=== PATIENT | female | born 1940 | race African-American/Black ===

== ENCOUNTER 2018-10-16 11:47 | Inpatient (IN) | payer MEDICARE, MEDICAID ==
[~2018-10-16] VITALS: Ht 162.6 cm; Wt 73.0 kg
[~2018-10-16 11:47] MED LIST: AMLODIPINE BESY10 MG ORAL; CO-GESIC 5-5001 EACH PO; DIOVAN80 MG ORAL; DOCUSATE SODIU100 M2 PO; GABAPENTIN600 MG PO; VENTOLIN HFA18 GM INH
[2018-10-16] MEDS ORDERED: AMIODARONE HCL200 MG ORAL (12:04)
[2018-10-16] MEDS ORDERED: DALIRESP500 MCG PO (12:04)
[2018-10-16] MEDS ORDERED: FUROSEMIDE40 MG ORAL (12:04)
[2018-10-16] MEDS ORDERED: XARELTO15 MG ORAL (12:04)
[2018-10-16] MEDS ORDERED: IPRATROPIU0.2 MG/1 M HHN (12:04)
[2018-10-16] MEDS ORDERED: CARTIA XT180 MG ORAL (12:04)
[2018-10-16] MEDS ORDERED: DIGOXIN125 MCG ORAL (12:04)
[2018-10-16 12:07] VITALS: BP 115/68
[2018-10-16] MEDS ORDERED: Metoclopramide 10mg/2ml Inj IVP ONE (12:30)
[2018-10-16] MEDS ORDERED: DiphenhydrAMINE 50mg/ml Inj IVP ONE (12:30)
[2018-10-16 12:38] LABS: BASOPHILS % (AUTO) 0.7 % (0.0-2.0); EOSINOPHILS % (AUTO) 1.3 % (0.0-3.0); HEMATOCRIT 40.4 % (37.0-47.0); HEMOGLOBIN 12.4 G/DL (12.0-16.0); LYMPHOCYTES % (AUTO) 16.5 % (20.0-45.0); MEAN CORPUSCULAR VOLUME 75 FL (80-99); MONOCYTES % (AUTO) 6.3 % (1.0-10.0); NEUTROPHILS % (AUTO) 75.3 % (45.0-75.0); PLATELET COUNT 312 K/UL (150-450); RED CELL DISTRIBUTION WIDTH 17.3 % (11.6-14.8); WHITE BLOOD COUNT 7.3 K/UL (4.8-10.8)
[2018-10-16 12:45] LABS: INR 1.6 (0.9-1.1)
[2018-10-16 12:52] LABS: ANION GAP 10 mmol/L (5-15); BLOOD UREA NITROGEN 12 mg/dL (7-18); CALCIUM 9.8 MG/DL (8.5-10.1); CARBON DIOXIDE 29 MMOL/L (21-32); CHLORIDE 100 MMOL/L (98-107); CREATININE 1.1 MG/DL (0.55-1.30); POTASSIUM 3.2 MMOL/L (3.5-5.1); SODIUM 139 MMOL/L (136-145)
[2018-10-16 13:03] LABS: ALBUMIN 3.6 G/DL (3.4-5.0); ALBUMIN/GLOBULIN RATIO 0.8 (1.0-2.7); ALKALINE PHOSPHATASE 124 U/L (46-116); BILIRUBIN,TOTAL 0.8 MG/DL (0.2-1.0)
[2018-10-16 13:16] LABS: ALANINE AMINOTRANSFERASE 24 U/L (12-78); ASPARTATE AMINO TRANSFERASE 30 U/L (15-37)
--- NOTE | 2018-10-16 13:48 | Emergency Room Report ---
History of Present Illness General Chief Complaint: Nausea, Vomiting, and Diarrhea Source: Patient Present Illness HPI The patient fell last week. She was evaluated at [facility] at [place]. She injured her back. She and her family member state that x- rays were taken and that no fractures were identified. She says the back is improved. However over the last several days she has not eaten well. She also feels nauseated and vomited once yesterday. She denies any diarrhea at this time. She is only been taking Tylenol because she is on Xarelto. She denies any lower extremity numbness, increasing pain, fevers, weakness in her legs, incontinence or oncologic problems. The pain is rated 7/10 in her back and she denies any pain in her abdomen. She denies any sore throat or cough. There are no rashes. She denies dysuria. She feels generalized weakness and also feels dehydrated. She ambulates with a walker. The patient has an history of atrial fibrillation and is taking digoxin. She denies depression. Her appetite is poor and she also feels nauseated. She was admitted 2012 with these dx: 1. Cellulitis of abdomen and upper thigh that is superficial. More likely fungal than bacterial. 2. History of recent upper viral infection and chronic obstructive pulmonary disease exacerbation. 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 3. Obesity. 4. Hypertension. 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 Hx Hypertension: Yes Hx Asthma: Yes Hx COPD: Yes Hx Cancer: No Hx Gastrointestinal Problems: No Hx Neurological Problems: No Hx Headaches: Yes - occationally Review of Systems All Other Systems: negative except mentioned in HPI Physical Exam Vital Signs Date Time Temp Pulse Resp B/P (MAP) Pulse Ox O2 Delivery O2 Flow Rate FiO2 10/16/18 11:54 97.5 65 20 118/75 94 Room Air Sp02 EP Interpretation: reviewed, normal General Appearance: no apparent distress, non-toxic, Chronically Ill Head: normocephalic Eyes: bilateral eye EOMI - Silastic lenses, bilateral eye other ENT: dry mucus membranes Neck: supple Respiratory: lungs clear, normal breath sounds Cardiovascular #1: irregularly irregular Cardiovascular #2: 2+ radial (R) Gastrointestinal: normal inspection, non tender, no mass, non-distended, decreased bowel sounds Genitourinary: no CVA tenderness Musculoskeletal: gait/station normal, normal range of motion, tender Neurologic: alert, DTRs symmetric, sensory intact, no Babinski, motor weakness - Minimal bilaterally, oriented - X2 Psychiatric: depressed affect Skin: normal inspection, warm/dry Medical Decision Making Diagnostic Impression: Primary Impression: Nausea, vomiting, and diarrhea Additional Impressions: Elevated lactic acid level Atrial fibrillation Qualified Codes: I48.2 - Chronic atrial fibrillation Chronic anticoagulation Dehydration ER Course Patient presents for week post fall. Allegedly she's had x-rays done that allegedly excluded fracture. She is on anticoagulation however. She presents with nausea vomiting and poor appetite. Differential includes gastroenteritis, Mayfield syndrome, diverticulitis, urinary tract infection, other occult infection, digoxin toxicity, ileus amongst others. Patient appears dehydrated. She'll be evaluated with EKG chest x-ray abdominal film and labs. She will receive IV hydration. The patient will be treated with Reglan and Benadryl and Pepcid. The abdomen is soft and nonsurgical. EKG with atrial fibrillation rate of [address]-T wave changes most likely digoxin effect. Chest x-ray cardiomegaly. Abdominal film nonspecific bowel pattern with gas in the rectum and some pelvic calcifications. Called with elevated lactic acid. Patient is afebrile, white count is normal. Urinalysis pending but looks clear. There is no evidence of infection at this time and this may be related to chronic dehydration. Improved with treatment. Needs observation and evaluation. Consider repeat studies of back as needed. Admit med Dr. العلي. Laboratory Tests Test 10/16/18 11:23 10/16/18 13:30 10/16/18 13:45 White Blood Count 7.3 K/UL (4.8-10.8) Red Blood Count 5.40 M/UL (4.20-5.40) Hemoglobin 12.4 G/DL (12.0-16.0) Hematocrit 40.4 % (37.0-47.0) Mean Corpuscular Volume 75 FL (80-99) L Mean Corpuscular Hemoglobin 22.9 PG (27.0-31.0) L Mean Corpuscular Hemoglobin Concent 30.6 G/DL (32.0-36.0) L Red Cell Distribution Width 17.3 % (11.6-14.8) H Platelet Count 312 K/UL (150-450) Mean Platelet Volume 8.7 FL (6.5-10.1) Neutrophils (%) (Auto) 75.3 % (45.0-75.0) H Lymphocytes (%) (Auto) 16.5 % (20.0-45.0) L Monocytes (%) (Auto) 6.3 % (1.0-10.0) Eosinophils (%) (Auto) 1.3 % (0.0-3.0) Basophils (%) (Auto) 0.7 % (0.0-2.0) Prothrombin Time 16.0 SEC (9.30-11.50) H Prothrombin Time INR 1.6 (0.9-1.1) H PTT 38 SEC (23-33) H Sodium Level 139 MMOL/L (136-145) Potassium Level 3.2 MMOL/L (3.5-5.1) L Chloride Level 100 MMOL/L (98-107) Carbon Dioxide Level 29 MMOL/L (21-32) Anion Gap 10 mmol/L (5-15) Blood Urea Nitrogen 12 mg/dL (7-18) Creatinine 1.1 MG/DL (0.55-1.30) Estimate Glomerular Filtration Rate mL/min (>60) Glucose Level 107 MG/DL (74-106) H Lactic Acid Level 3.10 mmol/L (0.4-2.0) H 1.60 mmol/L (0.66-2.22) Calcium Level 9.8 MG/DL (8.5-10.1) Total Bilirubin 0.8 MG/DL (0.2-1.0) Aspartate Amino Transferase (AST) 30 U/L (15-37) Alanine Aminotransferase (ALT) 24 U/L (12-78) Alkaline Phosphatase 124 U/L (46-116) H Troponin I 0.009 ng/mL (0.000-0.056) Pro-B-Type Natriuretic Peptide 1127 pg/mL (0-125) H Total Protein 8.1 G/DL (6.4-8.2) Albumin 3.6 G/DL (3.4-5.0) Globulin 4.5 g/dL Albumin/Globulin Ratio 0.8 (1.0-2.7) L Lipase 83 U/L (73-393) Digoxin Level 1.5 NG/ML (0.9-2.0) Urine Color Pale yellow Urine Appearance Clear Urine pH 7 (4.5-8.0) Urine Specific [place] 1.005 (1.005-1.035) Urine Protein Negative (NEGATIVE) Urine Glucose (UA) Negative (NEGATIVE) Urine Ketones Negative (NEGATIVE) Urine Blood 5+ (NEGATIVE) H Urine Nitrite Negative (NEGATIVE) Urine Bilirubin Negative (NEGATIVE) Urine Urobilinogen Normal MG/DL (0.0-1.0) Urine Leukocyte Esterase 1+ (NEGATIVE) H Urine RBC 15-20 /HPF (0 - 2) H Urine WBC 0-2 /HPF (0 - 2) Urine Squamous Epithelial Cells Few /LPF (NONE/OCC) Urine Bacteria Occasional /HPF (NONE) EKG Diagnostic Results Rate: normal Rhythm: other - a fib ST Segments: other - ST depression inferiorly, not STEMI Rhythm Strip Diag. Results EP Interpretation: yes Rhythm: NSR, no PVC's, no ectopy Chest X-Ray Diagnostic Results Chest X-Ray Diagnostic Results : Chest X-Ray Ordered: Yes Indication: Other EP Interpretation: Yes Interpretation: no consolidation, no effusion, no pneumothorax, other - inc cor Impression: Other Electronically Signed by: Electronically signed by Arden Gomez MD Other X-Ray Diagnostic Results Other X-Ray Diagnostic Results : X-Ray ordered: abdomen # of Views/Limited Vs Complete: 1 View Indication: Pain EP Interpretation: Yes Interpretation: nonspecific bowel gas, no sbo, other - pelvic calcifications Impression: Other Electronically Signed by: Electronically signed by Arden Gomez MD Last Vital Signs Date Time Temp Pulse Resp B/P (MAP) Pulse Ox O2 Delivery O2 Flow Rate FiO2 10/16/18 17:11 97.7 58 18 117/69 (85) 99 10/16/18 16:56 Room Air Status: improved Disposition: ADMITTED INPATIENT Condition: Serious Referrals: Robert العلي MD (PCP) Arden Gomez MD Oct 16, 2018 13:48
[2018-10-16 14:05] LABS: APPEARANCE,URINE CLEAR; BILIRUBIN, URINE NEGATIVE (NEGATIVE); COLOR,URINE PALE YELLOW; GLUCOSE, URINE (UA) NEGATIVE (NEGATIVE); KETONES,URINE NEGATIVE (NEGATIVE); LEUKOCYTE ESTERASE ,URINE 1+ (NEGATIVE); NITRITE,URINE NEGATIVE (NEGATIVE); PH,URINE 7 (4.5-8.0); PROTEIN,URINE NEGATIVE (NEGATIVE); UROBILINOGEN,URINE NORMAL MG/DL (0.0-1.0)
--- NOTE | 2018-10-16 14:59 | Diagnostic Imaging Report ---
Indication: Cough Technique: One view of the chest Comparison: 07/06/2012 Findings: The heart is borderline enlarged. This is a new finding since prior study. The lungs and pleural spaces are clear. There is some atelectasis in the left perihilar region. Impression: Cardiomegaly Left perihilar atelectasis. No acute process otherwise
--- NOTE | 2018-10-16 15:25 | Diagnostic Imaging Report ---
Indication: Abdominal pain and back pain Technique: Supine view of the abdomen Comparison: none Findings: Bowel gas pattern is unremarkable. Calcifications of uncertain origin are seen in the pelvis. There are degenerative changes of the lumbar spine Impression: No acute process
[2018-10-16] MEDS ORDERED: OMEPRAZOLE20 M3 ORAL (16:41)
[2018-10-16] MEDS ORDERED: METOPROLOL TART50 M1 ORAL (16:41)
[2018-10-16] MEDS ORDERED: TYLENOL EXTRA500 MG ORAL (16:41)
[2018-10-16] MEDS ORDERED: ANORO ELLIPTA1 EACH (16:41)
[2018-10-16] MEDS ORDERED: COSOPT1 DRO2 BOTH EYES (16:41)
[2018-10-16 17:11] VITALS: BP 117/69
[2018-10-16] MEDS ORDERED: Albuterol/Ipratropium 3ml neb HHN PRN (19:00)
[2018-10-16] MEDS ORDERED: Acetaminophen 500mg (ES) tab ORAL PRN (19:00)
[2018-10-16 20:00] VITALS: BP 98/61
[2018-10-16] MEDS ORDERED: Sodium Chloride for KCL Premix X 4hrs IV SCH (20:00)
[2018-10-16] MEDS: Cosopt Opth Soln 10 mL Btl BOTH EYES SCH (21:00)
[2018-10-16] MEDS: Xarelto 15mg tab ORAL SCH (21:00)
[2018-10-17] VITALS: BP 112/51
--- NOTE | 2018-10-17 01:45 | History and Physical Report ---
DATE OF ADMISSION: 10/16/2018 HISTORY OF PRESENT ILLNESS: This is a 78-year-old female, who came to the office of the recurrent nausea, vomiting, and abdominal pain. The patient has past medical history significant for atrial fibrillation, chronic anticoagulation, nausea, vomiting, diarrhea, elevated lactic acid level, and dehydration. PAST MEDICAL HISTORY: Significant for AFib, congestive heart failure, cardiac arrhythmia, chronic back pain, and acute on chronic bronchitis. ALLERGIES: NKA. FAMILY HISTORY: Noncontributory. SOCIAL HISTORY: The patient lives with the daughter. Denies any smoking and drinking. Denies any illicit drugs. REVIEW OF SYSTEMS: Generalized weakness, tired, fatigue, recurrent nausea and vomiting. The patient was also found to have hypokalemia. Potassium was 3.0. PHYSICAL EXAMINATION: VITAL SIGNS: Current blood pressure 117/69, pulse 58, and temperature 97.7. HEENT: NAD. CHEST: Bilaterally clear. CARDIOVASCULAR: Regular rhythm. No gallop. No murmur. ABDOMEN: Soft. Positive bowel sounds. No tenderness. EXTREMITIES: CCE. NEUROLOGICAL: Generalized weakness. LABORATORY AND DIAGNOSTIC DATA: White count 7.3 and hemoglobin 12. Chemistry panel, potassium was 3.2, BUN 12, creatinine 1.1, and glucose 107. Lactic acid 3.10. Her alkaline phosphate 127. BNP was 1127. Troponin 0.009. Lipase is 83. The patient also had an ultrasound of abdomen showing no acute process. Chest x-ray, left perihilar atelectasis and cardiomegaly. ASSESSMENT: 1. CHF. 2. Urinary tract infection. 3. Recurrent nausea and vomiting. 4. Hypokalemia. 5. Cardiac arrhythmia. 6. Chronic bronchitis and chronic obstructive pulmonary disease. PLAN: 1. We will admit on medical floor. 2. Start intravenous Lasix. 3. Bronchodilator treatments. 4. Antibiotics. 5. Continue Zofran. 6. Consider Cardiology and GI consult. Jeffrey العلي M.D. DR: CHARO JOB#: [id number] CC:
[2018-10-17 04:00] VITALS: BP 117/48
[2018-10-17 08:00] VITALS: BP 136/67
[2018-10-17] MEDS ORDERED: Digoxin 0.125mg tab ORAL SCH (09:00)
[2018-10-17] MEDS ORDERED: dilTIAZem HCl CD 180mg cap ORAL SCH (09:00)
[2018-10-17] MEDS ORDERED: Metoprolol Tartrate 50mg tab ORAL SCH (09:00)
[2018-10-17] MEDS: Cosopt Opth Soln 10 mL Btl BOTH EYES SCH ×2 (10:06→21:02)
--- NOTE | 2018-10-17 10:53 | GI Initial Consult Note ---
History of Present Illness General Date patient seen: Oct 17, 2018 Time patient seen: 10:50 Reason for Hospitalization: Nausea, Vomiting, and Diarrhea Referring physician: SINAN BARRERA Reason for Consultation: Abdominal pain Present Illness HPI The patient fell last week. She was evaluated at [facility] at [place]. She injured her back. She and her family member state that x- rays were taken and that no fractures were identified. She says the back is improved. However over the last several days she has not eaten well. She also feels nauseated and vomited once yesterday. She denies any diarrhea at this time. She is only been taking Tylenol because she is on Xarelto. She denies any lower extremity numbness, increasing pain, fevers, weakness in her legs, incontinence or oncologic problems. The pain is rated 7/10 in her back and she denies any pain in her abdomen. She denies any sore throat or cough. There are no rashes. She denies dysuria. She feels generalized weakness and also feels dehydrated. She ambulates with a walker. The patient has an history of atrial fibrillation and is taking digoxin. She denies depression. Her appetite is poor and she also feels nauseated. GI consulted for reported abdominal pain. Patient was seen, awake alert oriented x4 no apparent distress with no active signs or symptoms of nausea or vomiting. The patient denied any abdominal pain at this time. Denied any constipation or diarrhea. Denied any nausea or vomiting. Abdominal x-ray was performed in the emergency room, negative. Labs reviewed; no leukocytosis, no anemia, no transaminitis. Patient has no history of endoscopic or colonoscopy, and refused to have any GI procedures done at this time. Home Meds Reported Medications Acetaminophen* (TYLENOL EXTRA STRENGTH*) 500 Mg Tablet, 500 MG ORAL Q6H PRN for Mild Pain/Temp > 100.5, TAB 0 Refills 10/16/18 Metoprolol Tartrate* (METOPROLOL TARTRATE*) 50 Mg Tablet, 50 MG ORAL DAILY, TAB 10/16/18 Dorzolamide HCl/Timolol Maleat (Dorzolamide-Timolol Eye Drops) 10 Ml Drops, 1 DROP BOTH EYES EVERY 12 HOURS, ML 10/16/18 Umeclidinium Brm/Vilanterol Tr (Anoro Ellipta 62.5-25 Mcg INH) 1 Each Blst.w.dev , DAILY 10/16/18 Omeprazole (OMEPRAZOLE) 20 Mg Tablet.dr, 20 MG ORAL DAILY, TAB 10/16/18 Ipratropium [place] 0.5MG/2.5ML (IPRATROPIUM BROMIDE 0.5MG/2.5ML) 0.2 Mg/1 Ml Solution, 0.5 MG HHN Q6H PRN for Shortness of Breath, #28 EA 10/16/18 Roflumilast (DALIRESP) 500 Mcg Tablet, 250 MCG PO DAILY, TAB 10/16/18 Rivaroxaban (XARELTO) 15 Mg Tablet, 15 MG ORAL BEDTIME for 30 Days, MG 0 Refills 10/16/18 Diltiazem Hcl* (CARTIA XT*) 180 Mg Cap.er.24h, 180 MG ORAL DAILY, CAP Swallow capsule whole. Do not open, chew, or crush 10/16/18 Digoxin* (DIGOXIN*) 125 Mcg Tablet, 125 MCG ORAL DAILY, TAB 10/16/18 Amiodarone Hcl* (CORDARONE*) 200 Mg Tablet, 200 MG ORAL EVERY 12 HOURS, TAB 10/16/18 Furosemide* (LASIX*) 40 Mg Tablet, 40 MG ORAL DAILY, TAB 10/16/18 Albuterol Sulfate (VENTOLIN HFA) 18 Gm Hfa.aer.ad, 2 PUFFS INH TID, #2 INH 0 Refills 05/04/13 Amlodipine Besylate* (AMLODIPINE BESYLATE*) 10 Mg Tablet, 10 MG ORAL DAILY 09/25/12 Valsartan (DIOVAN) 80 Mg Tab, 80 MG ORAL DAILY, TAB 09/25/12 Docusate Sodium (DOCUSATE SODIUM) 100 Mg Tablet, 100 MG PO BID 09/25/12 Hydrocodone Bit/Acetaminophen (CO-GESIC 5-500 TABLET) 1 Each Tablet, 1 EACH PO NEEDED 09/25/12 Med list reviewed/reconciled: Yes Allergies: Coded Allergies: PENICILLINS (Verified Allergy, Unknown, 10/02/10) Patient History PMH Narrative She was admitted 2012 with these dx: 1. Cellulitis of abdomen and upper thigh that is superficial. More likely fungal than bacterial. 2. History of recent upper viral infection and chronic obstructive pulmonary disease exacerbation. 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 3. Obesity. 4. Hypertension. 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 Hx Hypertension: Yes Hx Asthma: Yes Hx COPD: Yes Hx Cancer: No Hx Gastrointestinal Problems: No Hx Neurological Problems: No Hx Headaches: Yes - occasionally Social History: Denies: smoking, alcohol use, drug use, other Review of Systems All Other Systems: negative except mentioned in HPI Physical Exam Vital Signs Date Time Temp Pulse Resp B/P (MAP) Pulse Ox O2 Delivery O2 Flow Rate FiO2 10/16/18 11:54 97.5 65 20 118/75 94 Room Air Sp02 EP Interpretation: reviewed, normal Labs Laboratory Tests Test 10/16/18 11:23 10/16/18 13:30 10/16/18 13:45 White Blood Count 7.3 K/UL (4.8-10.8) Red Blood Count 5.40 M/UL (4.20-5.40) Hemoglobin 12.4 G/DL (12.0-16.0) Hematocrit 40.4 % (37.0-47.0) Mean Corpuscular Volume 75 FL (80-99) L Mean Corpuscular Hemoglobin 22.9 PG (27.0-31.0) L Mean Corpuscular Hemoglobin Concent 30.6 G/DL (32.0-36.0) L Red Cell Distribution Width 17.3 % (11.6-14.8) H Platelet Count 312 K/UL (150-450) Mean Platelet Volume 8.7 FL (6.5-10.1) Neutrophils (%) (Auto) 75.3 % (45.0-75.0) H Lymphocytes (%) (Auto) 16.5 % (20.0-45.0) L Monocytes (%) (Auto) 6.3 % (1.0-10.0) Eosinophils (%) (Auto) 1.3 % (0.0-3.0) Basophils (%) (Auto) 0.7 % (0.0-2.0) Prothrombin Time 16.0 SEC (9.30-11.50) H Prothromb Time International Ratio 1.6 (0.9-1.1) H Activated Partial Thromboplast Time 38 SEC (23-33) H Sodium Level 139 MMOL/L (136-145) Potassium Level 3.2 MMOL/L (3.5-5.1) L Chloride Level 100 MMOL/L (98-107) Carbon Dioxide Level 29 MMOL/L (21-32) Anion Gap 10 mmol/L (5-15) Blood Urea Nitrogen 12 mg/dL (7-18) Creatinine 1.1 MG/DL (0.55-1.30) Estimat Glomerular Filtration Rate mL/min (>60) Glucose Level 107 MG/DL (74-106) H Lactic Acid Level 3.10 mmol/L (0.4-2.0) H 1.60 mmol/L (0.66-2.22) Calcium Level 9.8 MG/DL (8.5-10.1) Total Bilirubin 0.8 MG/DL (0.2-1.0) Aspartate Amino Transf (AST/SGOT) 30 U/L (15-37) Alanine Aminotransferase (ALT/SGPT) 24 U/L (12-78) Alkaline Phosphatase 124 U/L (46-116) H Troponin I 0.009 ng/mL (0.000-0.056) Pro-B-Type Natriuretic Peptide 1127 pg/mL (0-125) H Total Protein 8.1 G/DL (6.4-8.2) Albumin 3.6 G/DL (3.4-5.0) Globulin 4.5 g/dL Albumin/Globulin Ratio 0.8 (1.0-2.7) L Lipase 83 U/L (73-393) Digoxin Level 1.5 NG/ML (0.9-2.0) Urine Color Pale yellow Urine Appearance Clear Urine pH 7 (4.5-8.0) Urine Specific [place] 1.005 (1.005-1.035) Urine Protein Negative (NEGATIVE) Urine Glucose (UA) Negative (NEGATIVE) Urine Ketones Negative (NEGATIVE) Urine Blood 5+ (NEGATIVE) H Urine Nitrite Negative (NEGATIVE) Urine Bilirubin Negative (NEGATIVE) Urine Urobilinogen Normal MG/DL (0.0-1.0) Urine Leukocyte Esterase 1+ (NEGATIVE) H Urine RBC 15-20 /HPF (0 - 2) H Urine WBC 0-2 /HPF (0 - 2) Urine Squamous Epithelial Cells Few /LPF (NONE/OCC) Urine Bacteria Occasional /HPF (NONE) General Appearance: well appearing, no apparent distress, alert Head: normocephalic EENT: PERRL/EOMI, normal ENT inspection Neck: supple Respiratory: normal breath sounds, no respiratory distress Cardiovascular: normal rate Gastrointestinal: normal inspection, non tender, soft, normal bowel sounds, non -distended Rectal: deferred Genitourinary: no CVA tenderness Musculoskeletal: normal inspection, back normal Neurologic: normal inspection, alert, oriented x3, responsive Psychiatric: normal inspection, judgement/insight normal, memory normal Skin: normal inspection, normal color, no rash, warm/dry, palpation normal, well hydrated Lymphatic: normal inspection, no adenopathy Current Medications Current Medications Medications (Trade) Dose Ordered Sig/Caden Route PRN Reason Start Time Stop Time Status Last Admin Dose Admin Acetaminophen (Tylenol) 500 mg Q6H PRN ORAL Mild Pain/Temp > 100.5 10/16/18 19:00 11/15/18 18:59 Albuterol/ Ipratropium (Albuterol/ Ipratropium) 3 ml Q4HRT PRN HHN Shortness of Breath 10/16/18 19:00 10/21/18 18:59 Digoxin (Lanoxin) 0.125 mg DAILY ORAL 10/17/18 09:00 11/16/18 08:59 10/17/18 09:24 Diltiazem HCl (Cardizem CD) 180 mg DAILY ORAL 10/17/18 09:00 11/16/18 08:59 10/17/18 09:24 Dorzolamide/ Timolol (Cosopt) 1 drop EVERY 12 HOURS BOTH EYES 10/16/18 21:00 11/15/18 20:59 10/17/18 10:06 Furosemide (Lasix) 40 mg DAILY IV 10/17/18 09:00 11/16/18 08:59 10/17/18 09:25 Levofloxacin 50 ml @ 50 mls/hr Q24H IVPB 10/17/18 21:00 10/24/18 20:59 Metoprolol Tartrate (Lopressor) 50 mg DAILY ORAL 10/17/18 09:00 11/16/18 08:59 10/17/18 09:25 Ondansetron HCl (Zofran) 4 mg Q4H PRN IVP Nausea & Vomiting 10/16/18 19:00 11/15/18 18:59 Pantoprazole (Protonix) 40 mg DAILY ORAL 10/17/18 09:00 11/16/18 08:59 10/17/18 09:24 Rivaroxaban (Xarelto) 15 mg BEDTIME ORAL 10/16/18 21:00 11/15/18 20:59 10/16/18 21:00 GI: Plan Problems: (1) Nausea, vomiting, and diarrhea (2) Dehydration (3) Abdominal pain Plan Note that the patient is on rivaroxaban, must be discontinued for 72 hours prior to any GI procedure. Patient refuses endoscopic or colonoscopy KUB negative Symptomatic treatment at this time Pain management Okay to advance to regular diet Zofran as needed Bowel regimen PPI Follow labs Outpatient GI procedures if patient agrees Discussed with Dr. Wren. Thank you for this patient referral, we will follow. The patient was seen and examined at bedside and all new and available data was reviewed in the patients chart. I agree with the above findings, impression and plan. (Patient seen earlier today. Signature stamp does not reflect patient encounter time.). - MD Lenore Rest[facility]Val[facility]INN Oct 17, 2018 10:53
[2018-10-17 12:00] VITALS: BP 111/58
[2018-10-17] MEDS: Docusate 100mg cap ORAL SCH ×2 (13:00→17:23)
--- NOTE | 2018-10-17 15:47 | Cardiac Electrophysiology PN ---
Subjective Subjective [id number] Objective Last 24 Hour Vital Signs Date Time Temp Pulse Resp B/P (MAP) Pulse Ox O2 Delivery O2 Flow Rate FiO2 10/17/18 09:25 73 136/67 10/17/18 09:24 73 136/67 10/17/18 09:24 73 10/17/18 08:00 98.1 73 15 136/67 (90) 97 10/17/18 04:00 98.1 62 15 117/48 (71) 95 10/17/18 00:00 98.2 52 15 112/51 (71) 99 10/16/18 21:00 Room Air 10/16/18 20:00 99.1 68 17 98/61 (73) 99 10/16/18 17:11 97.7 58 18 117/69 (85) 99 10/16/18 16:56 Room Air 10/16/18 15:57 98.2 68 16 122/72 96 Room Air Intake and Output 10/16/18 10/17/18 19:00 07:00 Intake Total 1000 ml 240 ml Balance 1000 ml 240 ml Intake Oral 240 ml IV Total 1000 ml # Voids 2 Jose Martin Mcallister MD Oct 17, 2018 15:47
--- NOTE | 2018-10-17 15:59 | Cardiology Report ---
APPROVED REPORT EKG Measurement Heart [id number] Atrial fibrillation Marked ST abnormality, possible inferior subendocardial injury Abnormal ECG
[2018-10-17 16:00] VITALS: BP 117/59
[2018-10-17 20:00] VITALS: BP 108/56
[2018-10-17] MEDS ORDERED: Levofloxacin 250mg/D5W 50ml IVPB SCH (21:00)
[2018-10-17] MEDS ORDERED: Metoprolol 25mg tab ORAL SCH (21:00)
[2018-10-17] MEDS: Xarelto 15mg tab ORAL SCH (21:02)
--- NOTE | 2018-10-17 21:45 | Consultation ---
DATE OF CONSULTATION: 10/17/2018 CARDIOLOGY CONSULTATION CONSULTING PHYSICIAN: Jose Martin Mcallister M.D. REFERRING PHYSICIAN: Robert العلي M.D. REASON FOR CONSULTATION: Nausea, hypertension, atrial fibrillation, and congestive heart failure. HISTORY OF PRESENT ILLNESS: The patient is an elderly lady with history of hypertension and atrial fibrillation, who fell last week and was evaluated in [facility] in [place]. She injured her back. X-rays showed no fracture. In the last several days, the patient has not been eating well and has been nauseated and vomited once. The patient has been on Xarelto for atrial fibrillation. The patient was admitted and Cardiology consultation was obtained for further evaluation and management. REVIEW OF SYSTEMS: Negative other than what was mentioned in history of present illness. PAST MEDICAL HISTORY: As mentioned above. PAST SURGICAL HISTORY: Hysterectomy and cataract surgery. FAMILY HISTORY: Noncontributory. SOCIAL HISTORY: She lives at home. Does not smoke or drink alcohol. PHYSICAL EXAMINATION: VITAL SIGNS: Blood pressure 118/75, pulse 65, respirations 20, and temperature 97.5. HEAD AND NECK: No JVD. LUNGS: Coarse rhonchi. CARDIOVASCULAR: Irregular S1 and S2 with no gallop or rub. ABDOMEN: Soft. EXTREMITIES: No pitting edema. DIAGNOSTIC DATA: Her EKG shows of [address]-T wave abnormalities. Chest x-ray shows cardiomegaly. LABORATORY DATA: White count of 7.7, hemoglobin 12.4, hematocrit of 40, and platelet count is 312,000. Sodium 139, potassium 3.2, BUN of 12, creatinine 1.1, and glucose of 107. Her troponin is negative. ASSESSMENT AND PLAN: 1. Atrial fibrillation. The patient's rate is controlled on digoxin 0.125 mg daily and Cardizem CD 180 mg daily. The patient is also on Toprol 50 mg daily that had changed to 25 mg b.i.d. The patient is also on Xarelto 15 mg at bedtime. We will repeat EKG and echocardiogram. 2. History of hypertension, on Cardizem, metoprolol, and Lasix 40 mg IV daily. 3. Congestive heart failure. Again, echocardiogram is pending due to diastolic dysfunction. 4. Abdominal pain. Further evaluation by Dr. Wren. Thank you very much for allowing me to participate in the care of this patient. Please do not hesitate to contact me for any questions regarding my evaluation. Jose Martin Mcallister M.D. DR: TORREY JOB#: [id number] CC:
--- NOTE | 2018-10-17 23:00 | Progress Note ---
DATE: 10/17/2018 SUBJECTIVE: This is an elderly female, who is eating better. She is in bed. OBJECTIVE: VITAL SIGNS: Blood pressure 127/70, pulse 74, and respirations 18. HEENT: NAD. CHEST: Bilaterally clear. CARDIOVASCULAR: Regular rhythm. ABDOMEN: Soft. EXTREMITIES: CCE. ASSESSMENT: 1. Nausea and vomiting. 2. Gastritis. 3. Hypokalemia. 4. Dehydration. 5. Congestive heart failure. PLAN: 1. Consider Cardiology consult. 2. Gastrointestinal is awaiting for consult. 3. Continue . 4. Continue current . Jeffrey العلي M.D. DR: CHARO JOB#: [id number] CC:
[2018-10-18] VITALS: BP 122/66
[2018-10-18 04:00] VITALS: BP 121/73
[2018-10-18 07:16] LABS: ANION GAP 10 mmol/L (5-15); BLOOD UREA NITROGEN 10 mg/dL (7-18); CALCIUM 9.4 MG/DL (8.5-10.1); CARBON DIOXIDE 26 MMOL/L (21-32); CHLORIDE 105 MMOL/L (98-107); CREATININE 0.9 MG/DL (0.55-1.30); POTASSIUM 3.3 MMOL/L (3.5-5.1); SODIUM 141 MMOL/L (136-145)
[2018-10-18 07:18] LABS: BASOPHILS % (AUTO) 0.8 % (0.0-2.0); EOSINOPHILS % (AUTO) 2.6 % (0.0-3.0); HEMATOCRIT 34.3 % (37.0-47.0); HEMOGLOBIN 10.7 G/DL (12.0-16.0); MEAN CORPUSCULAR VOLUME 75 FL (80-99); MONOCYTES % (AUTO) 7.2 % (1.0-10.0); NEUTROPHILS % (AUTO) 71.4 % (45.0-75.0); PLATELET COUNT 255 K/UL (150-450); RED BLOOD COUNT 4.59 M/UL (4.20-5.40); RED CELL DISTRIBUTION WIDTH 17.6 % (11.6-14.8); WHITE BLOOD COUNT 6.4 K/UL (4.8-10.8)
--- NOTE | 2018-10-18 07:46 | Cardiac Electrophysiology PN ---
Assessment/Plan Assessment/Plan 1. Atrial fibrillation. Russ 51 on digoxin 0.125 mg daily and Cardizem CD 180 mg daily and Lopressor 25 mg b.i.d. Also on Xarelto 15 mg at bedtime. Dig level 1.1 2. History of hypertension, on Cardizem, metoprolol, and Lasix 40 mg IV daily. 3. Congestive heart failure with BNP 1127. Echocardiogram is pending. On LAsix 4. Abdominal pain. Further evaluation by Dr. Wren. 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 No CP or SOB Objective Last 24 Hour Vital Signs Date Time Temp Pulse Resp B/P (MAP) Pulse Ox O2 Delivery O2 Flow Rate FiO2 10/18/18 04:00 98.6 66 18 121/73 (89) 10/18/18 00:00 99.2 64 20 122/66 (84) 10/17/18 21:00 56 108/65 10/17/18 21:00 Room Air 10/17/18 20:00 98.5 56 18 108/56 (73) 10/17/18 16:00 98.2 59 20 117/59 (78) 96 10/17/18 12:00 98.2 58 20 111/58 (75) 97 10/17/18 09:25 73 136/67 10/17/18 09:24 73 136/67 10/17/18 09:24 73 10/17/18 09:00 Room Air 10/17/18 08:00 98.1 73 15 136/67 (90) 97 Intake and Output 10/17/18 10/18/18 19:00 07:00 Intake Total 960 ml 360 ml Balance 960 ml 360 ml Intake Oral 960 ml 360 ml # Voids 6 3 # Bowel Movements 1 1 Laboratory Tests Test 10/18/18 06:10 White Blood Count 6.4 K/UL (4.8-10.8) Red Blood Count 4.59 M/UL (4.20-5.40) Hemoglobin 10.7 G/DL (12.0-16.0) L Hematocrit 34.3 % (37.0-47.0) L Mean Corpuscular Volume 75 FL (80-99) L Mean Corpuscular Hemoglobin 23.3 PG (27.0-31.0) L Mean Corpuscular Hemoglobin Concent 31.2 G/DL (32.0-36.0) L Red Cell Distribution Width 17.6 % (11.6-14.8) H Platelet Count 255 K/UL (150-450) Mean Platelet Volume 8.0 FL (6.5-10.1) Neutrophils (%) (Auto) 71.4 % (45.0-75.0) Lymphocytes (%) (Auto) 18.0 % (20.0-45.0) L Monocytes (%) (Auto) 7.2 % (1.0-10.0) Eosinophils (%) (Auto) 2.6 % (0.0-3.0) Basophils (%) (Auto) 0.8 % (0.0-2.0) Sodium Level 141 MMOL/L (136-145) Potassium Level 3.3 MMOL/L (3.5-5.1) L Chloride Level 105 MMOL/L (98-107) Carbon Dioxide Level 26 MMOL/L (21-32) Anion Gap 10 mmol/L (5-15) Blood Urea Nitrogen 10 mg/dL (7-18) Creatinine 0.9 MG/DL (0.55-1.30) Estimat Glomerular Filtration Rate mL/min (>60) Glucose Level 92 MG/DL (74-106) Calcium Level 9.4 MG/DL (8.5-10.1) Troponin I Pending Pro-B-Type Natriuretic Peptide Pending Digoxin Level 1.1 NG/ML (0.9-2.0) Objective HEAD AND NECK: No JVD. LUNGS: Coarse rhonchi. CARDIOVASCULAR: Irregular S1 and S2 with no gallop or rub. ABDOMEN: Soft. EXTREMITIES: No pitting edema. Jose Martin Mcallister MD October 18, 2018 07:46
[2018-10-18 08:20] VITALS: BP 120/63
[2018-10-18] MEDS ORDERED: dilTIAZem HCl CD 180mg cap ORAL SCH (08:30)
[2018-10-18] MEDS ORDERED: Cosopt Opth Soln 10 mL Btl BOTH EYES SCH (08:30)
[2018-10-18] MEDS ORDERED: Digoxin 0.125mg tab ORAL SCH (08:30)
[2018-10-18] MEDS ORDERED: Acetaminophen 500mg (ES) tab ORAL PRN ×2 (08:30→09:00)
[2018-10-18] MEDS ORDERED: Metoprolol Tartrate 50mg tab ORAL SCH (08:30)
[2018-10-18] MEDS ORDERED: Albuterol/Ipratropium 3ml neb HHN PRN (09:00)
[2018-10-18] MEDS: Cosopt Opth Soln 10 mL Btl BOTH EYES SCH ×2 (09:00→21:25)
[2018-10-18] MEDS: Docusate 100mg cap ORAL SCH ×3 (09:48→17:09)
[2018-10-18] MEDS: dilTIAZem HCl CD 180mg cap ORAL SCH (09:48)
[2018-10-18] MEDS: Digoxin 0.125mg tab ORAL SCH (09:48)
[2018-10-18] MEDS: Metoprolol 25mg tab ORAL SCH ×2 (09:49→21:25)
--- NOTE | 2018-10-18 10:27 | GI Progress Note ---
Assessment/Plan Problems: (1) Abdominal pain ICD Codes: R10.9 - Unspecified abdominal pain SNOMED: 08621177 (2) Dehydration ICD Codes: E86.0 - Dehydration SNOMED: 89457628 (3) Nausea, vomiting, and diarrhea ICD Codes: R11.2 - Nausea with vomiting, unspecified; R19.7 - Diarrhea, unspecified SNOMED: 9085483 Status: stable Status Narrative Discussed with Dr. Wren Assessment/Plan Note that the patient is on rivaroxaban, must be discontinued for 72 hours prior to any GI procedure. Patient refuses endoscopic or colonoscopy KUB negative Symptomatic treatment at this time Pain management Okay to advance to regular diet Zofran as needed Bowel regimen PPI Follow labs Outpatient GI procedures if patient agrees The patient was seen and examined at bedside and all new and available data was reviewed in the patients chart. I agree with the above findings, impression and plan. (Patient seen earlier today. Signature stamp does not reflect patient encounter time.). - Ish Wren MD Subjective Gastrointestinal/Abdominal: Reports: no symptoms Objective Last 24 Hour Vital Signs Date Time Temp Pulse Resp B/P (MAP) Pulse Ox O2 Delivery O2 Flow Rate FiO2 10/18/18 09:49 69 120/63 10/18/18 09:48 69 120/63 10/18/18 09:48 69 10/18/18 04:00 98.6 66 18 121/73 (89) 10/18/18 00:00 99.2 64 20 122/66 (84) 10/17/18 21:00 56 108/65 10/17/18 21:00 Room Air 10/17/18 20:00 98.5 56 18 108/56 (73) 10/17/18 16:00 98.2 59 20 117/59 (78) 96 10/17/18 12:00 98.2 58 20 111/58 (75) 97 Intake and Output 10/17/18 10/18/18 18:59 06:59 Intake Total 960 ml 360 ml Balance 960 ml 360 ml Intake Oral 960 ml 360 ml # Voids 6 3 # Bowel Movements 1 1 Laboratory Tests Test 10/18/18 06:10 White Blood Count 6.4 K/UL (4.8-10.8) Red Blood Count 4.59 M/UL (4.20-5.40) Hemoglobin 10.7 G/DL (12.0-16.0) L Hematocrit 34.3 % (37.0-47.0) L Mean Corpuscular Volume 75 FL (80-99) L Mean Corpuscular Hemoglobin 23.3 PG (27.0-31.0) L Mean Corpuscular Hemoglobin Concent 31.2 G/DL (32.0-36.0) L Red Cell Distribution Width 17.6 % (11.6-14.8) H Platelet Count 255 K/UL (150-450) Mean Platelet Volume 8.0 FL (6.5-10.1) Neutrophils (%) (Auto) 71.4 % (45.0-75.0) Lymphocytes (%) (Auto) 18.0 % (20.0-45.0) L Monocytes (%) (Auto) 7.2 % (1.0-10.0) Eosinophils (%) (Auto) 2.6 % (0.0-3.0) Basophils (%) (Auto) 0.8 % (0.0-2.0) Sodium Level 141 MMOL/L (136-145) Potassium Level 3.3 MMOL/L (3.5-5.1) L Chloride Level 105 MMOL/L (98-107) Carbon Dioxide Level 26 MMOL/L (21-32) Anion Gap 10 mmol/L (5-15) Blood Urea Nitrogen 10 mg/dL (7-18) Creatinine 0.9 MG/DL (0.55-1.30) Estimat Glomerular Filtration Rate mL/min (>60) Glucose Level 92 MG/DL (74-106) Calcium Level 9.4 MG/DL (8.5-10.1) Troponin I 0.019 ng/mL (0.000-0.056) Pro-B-Type Natriuretic Peptide 2972 pg/mL (0-125) H Digoxin Level 1.1 NG/ML (0.9-2.0) Height (Feet): 5 Height (Inches): 4.00 Weight (Pounds): 161 General Appearance: WD/WN, no apparent distress, alert Cardiovascular: normal rate Respiratory/Chest: normal breath sounds, no respiratory distress Abdominal Exam: normal bowel sounds, non tender, soft Extremities: normal range of motion, non-tender Santi Grover MIXER BLENDER October 18, 2018 10:27
[2018-10-18 12:00] VITALS: BP 110/42
--- NOTE | 2018-10-18 15:08 | Cardiology Report ---
APPROVED REPORT EXAM: Two-dimensional and M-mode echocardiogram with Doppler and color Doppler. INDICATION Congestive Heart Failure M-Mode DIMENSIONS IVSd1.2 (0.7-1.1cm)Left Atrium (MM)3.9 (1.6-4.0cm) LVDd4.1 (3.5-5.6cm)Aortic Root2.3 (2.0-3.7cm) PWd1.4 (0.7-1.1cm)Aortic Cusp Exc.1.6 (1.5-2.0cm) IVSs1.5 cm LVDs2.8 (2.5-4.0cm) PWs1.4 cm Technically difficult study due to poor acoustical windows. Normal left ventricular chamber size, systolic function and wall motion to extend visualized . Left ventricular ejection fraction estimated to be 60-65 %. Mild left ventricular hypertrophy by 2-D. Anterior Echo-free space, may be due to pericardial fat or effusion. Left atrial size is within normal limits. Right atrial size at upper limits of normal. Right ventricular chamber sizes is within normal limits. Focal aortic valve sclerosis with adequate cusp excursion. Thickened mitral valve leaflets with normal excursion. Mitral annulus and aortic root calcification. Pulmonic valve not well visualized. Normal tricuspid valve structure. IVC at normal size with physiologic collapse. A color flow and spectral Doppler study was performed and revealed: No aortic insufficiency . Mild mitral regurgitation. Left ventricular diastolic function can not determined due to Atrial fibrillation. Mild to moderate tricuspid regurgitation. Tricuspid systolic velocities suggests peak right ventricular systolic pressure of 44 mmHg,consistent with mild pulmonary hypertension.
[2018-10-18 16:00] VITALS: BP 104/61
[2018-10-18 20:00] VITALS: BP 119/72
[2018-10-18] MEDS ORDERED: Xarelto 15mg tab ORAL SCH ×2 (21:00)
--- NOTE | 2018-10-18 21:45 | Progress Note ---
DATE: 10/18/2018 SUBJECTIVE: This is an elderly female, sitting in the bed, having 2D echo. Her nausea and vomiting are better. OBJECTIVE: VITAL SIGNS: Stable. CHEST: Bilaterally few crackles. CARDIOVASCULAR: Regular rhythm. ABDOMEN: Soft. EXTREMITIES: CCE. NEUROLOGICAL: No focal deficit. ASSESSMENT: 1. CHF. 2. Urinary tract infection. 3. Recurrent nausea and vomiting. 4. Dehydration. 5. . PLAN: We will currently continue current treatment. Checking 2D echo. Cardiology is on case. Restricted fluid. PT and OT. Jeffrey العلي M.D. DR: CHARO JOB#: [id number] CC:
[2018-10-19] VITALS: BP 128/61
[2018-10-19 04:20] VITALS: BP 124/60
[2018-10-19 07:17] LABS: BASOPHILS % (AUTO) 0.6 % (0.0-2.0); EOSINOPHILS % (AUTO) 2.3 % (0.0-3.0); HEMATOCRIT 37.4 % (37.0-47.0); HEMOGLOBIN 11.5 G/DL (12.0-16.0); LYMPHOCYTES % (AUTO) 19.7 % (20.0-45.0); MEAN CORPUSCULAR VOLUME 75 FL (80-99); MONOCYTES % (AUTO) 7.5 % (1.0-10.0); NEUTROPHILS % (AUTO) 69.9 % (45.0-75.0); PLATELET COUNT 247 K/UL (150-450); RED BLOOD COUNT 4.98 M/UL (4.20-5.40); RED CELL DISTRIBUTION WIDTH 17.9 % (11.6-14.8); WHITE BLOOD COUNT 6.3 K/UL (4.8-10.8)
[2018-10-19 08:00] VITALS: BP 172/80
[2018-10-19 08:23] LABS: ANION GAP 9 mmol/L (5-15); BLOOD UREA NITROGEN 10 mg/dL (7-18); CALCIUM 9.3 MG/DL (8.5-10.1); CARBON DIOXIDE 27 MMOL/L (21-32); CHLORIDE 105 MMOL/L (98-107); CREATININE 0.9 MG/DL (0.55-1.30); POTASSIUM 3.9 MMOL/L (3.5-5.1); SODIUM 141 MMOL/L (136-145)
[2018-10-19] MEDS: Digoxin 0.125mg tab ORAL SCH (09:53)
[2018-10-19] MEDS: dilTIAZem HCl CD 180mg cap ORAL SCH (09:53)
[2018-10-19] MEDS: Metoprolol 25mg tab ORAL SCH (09:53)
[2018-10-19] MEDS: Docusate 100mg cap ORAL SCH ×3 (09:53→18:00)
[2018-10-19] MEDS: Cosopt Opth Soln 10 mL Btl BOTH EYES SCH (09:54)
--- NOTE | 2018-10-19 11:17 | GI Progress Note ---
Assessment/Plan Problems: (1) Abdominal pain ICD Codes: R10.9 - Unspecified abdominal pain SNOMED: 92109316 (2) Dehydration ICD Codes: E86.0 - Dehydration SNOMED: 43975023 (3) Nausea, vomiting, and diarrhea ICD Codes: R11.2 - Nausea with vomiting, unspecified; R19.7 - Diarrhea, unspecified SNOMED: 1767874 Status: stable Status Narrative Discussed with Dr. Wren Assessment/Plan Note that the patient is on rivaroxaban, must be discontinued for 72 hours prior to any GI procedure. Patient refuses endoscopic or colonoscopy KUB negative Symptomatic treatment at this time Pain management Okay to advance to regular diet Zofran as needed Bowel regimen PPI Follow labs Outpatient GI procedures if patient agrees The patient was seen and examined at bedside and all new and available data was reviewed in the patients chart. I agree with the above findings, impression and plan. (Patient seen earlier today. Signature stamp does not reflect patient encounter time.). - Ish Wren MD Subjective Gastrointestinal/Abdominal: Reports: no symptoms Objective Last 24 Hour Vital Signs Date Time Temp Pulse Resp B/P (MAP) Pulse Ox O2 Delivery O2 Flow Rate FiO2 10/19/18 09:53 80 172/80 10/19/18 09:53 80 172/80 10/19/18 09:53 80 10/19/18 09:00 Room Air 10/19/18 08:00 97.7 80 16 172/80 (110) 94 10/19/18 08:00 51 10/19/18 04:20 98.0 68 18 124/60 (81) 98 10/19/18 04:20 57 10/19/18 00:06 60 20 Room Air 21 10/19/18 00:00 98.7 63 18 128/61 (83) 96 10/19/18 00:00 55 10/18/18 21:25 61 119/72 10/18/18 21:00 Room Air 10/18/18 20:00 54 10/18/18 20:00 98.1 61 20 119/72 (88) 97 10/18/18 16:00 57 10/18/18 16:00 98.1 73 20 104/61 (75) 97 10/18/18 12:00 59 10/18/18 12:00 98.4 66 19 110/42 (64) 97 Intake and Output 10/18/18 10/19/18 19:00 07:00 Intake Total 540 ml Output Total 1000 ml Balance -460 ml Intake Oral 540 ml Output Urine Total 1000 ml # Voids 2 Laboratory Tests Test 10/19/18 07:00 White Blood Count 6.3 K/UL (4.8-10.8) Red Blood Count 4.98 M/UL (4.20-5.40) Hemoglobin 11.5 G/DL (12.0-16.0) L Hematocrit 37.4 % (37.0-47.0) Mean Corpuscular Volume 75 FL (80-99) L Mean Corpuscular Hemoglobin 23.0 PG (27.0-31.0) L Mean Corpuscular Hemoglobin Concent 30.7 G/DL (32.0-36.0) L Red Cell Distribution Width 17.9 % (11.6-14.8) H Platelet Count 247 K/UL (150-450) Mean Platelet Volume 7.8 FL (6.5-10.1) Neutrophils (%) (Auto) 69.9 % (45.0-75.0) Lymphocytes (%) (Auto) 19.7 % (20.0-45.0) L Monocytes (%) (Auto) 7.5 % (1.0-10.0) Eosinophils (%) (Auto) 2.3 % (0.0-3.0) Basophils (%) (Auto) 0.6 % (0.0-2.0) Sodium Level 141 MMOL/L (136-145) Potassium Level 3.9 MMOL/L (3.5-5.1) Chloride Level 105 MMOL/L (98-107) Carbon Dioxide Level 27 MMOL/L (21-32) Anion Gap 9 mmol/L (5-15) Blood Urea Nitrogen 10 mg/dL (7-18) Creatinine 0.9 MG/DL (0.55-1.30) Estimat Glomerular Filtration Rate mL/min (>60) Glucose Level 99 MG/DL (74-106) Calcium Level 9.3 MG/DL (8.5-10.1) Height (Feet): 5 Height (Inches): 4.00 Weight (Pounds): 161 General Appearance: WD/WN, no apparent distress, alert Cardiovascular: normal rate Respiratory/Chest: normal breath sounds, no respiratory distress Abdominal Exam: normal bowel sounds, non tender, soft Extremities: normal range of motion, non-tender Santi Grover NP October 19, 2018 11:17
[2018-10-19 11:52] VITALS: BP 181/82
[2018-10-19 16:00] VITALS: BP 156/74
--- NOTE | 2018-10-19 16:17 | Cardiac Electrophysiology PN ---
Assessment/Plan Assessment/Plan 1. Atrial fibrillation. On digoxin 0.125 mg daily, Cardizem CD 180 mg daily, Lopressor 25 mg bid and Xarelto 15 mg at bedtime. Dig level 1.1. Russ cardic down to 40s. DC Digoxin 2. History of hypertension, on Cardizem, metoprolol, and change Lasix to 40 mg po daily. 3. Congestive heart failure with BNP 1127. Echocardiogram is pending. On LAsix 4. Abdominal pain. Further evaluation by Dr. Wren. 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 No CP or SOB. In SR. Refused EGD and colonoscopy Objective Last 24 Hour Vital Signs Date Time Temp Pulse Resp B/P (MAP) Pulse Ox O2 Delivery O2 Flow Rate FiO2 10/19/18 12:00 51 10/19/18 11:52 98.2 79 16 181/82 (115) 95 10/19/18 09:53 80 172/80 10/19/18 09:53 80 172/80 10/19/18 09:53 80 10/19/18 09:00 Room Air 10/19/18 08:00 97.7 80 16 172/80 (110) 94 10/19/18 08:00 51 10/19/18 04:20 98.0 68 18 124/60 (81) 98 10/19/18 04:20 57 10/19/18 00:06 60 20 Room Air 21 10/19/18 00:00 98.7 63 18 128/61 (83) 96 10/19/18 00:00 55 10/18/18 21:25 61 119/72 10/18/18 21:00 Room Air 10/18/18 20:00 54 10/18/18 20:00 98.1 61 20 119/72 (88) 97 Intake and Output 10/18/18 10/19/18 18:59 06:59 Intake Total 240 ml 300 ml Output Total 500 ml 500 ml Balance -260 ml -200 ml Intake Oral 240 ml 300 ml Output Urine Total 500 ml 500 ml # Voids 2 Laboratory Tests Test 10/19/18 07:00 White Blood Count 6.3 K/UL (4.8-10.8) Red Blood Count 4.98 M/UL (4.20-5.40) Hemoglobin 11.5 G/DL (12.0-16.0) L Hematocrit 37.4 % (37.0-47.0) Mean Corpuscular Volume 75 FL (80-99) L Mean Corpuscular Hemoglobin 23.0 PG (27.0-31.0) L Mean Corpuscular Hemoglobin Concent 30.7 G/DL (32.0-36.0) L Red Cell Distribution Width 17.9 % (11.6-14.8) H Platelet Count 247 K/UL (150-450) Mean Platelet Volume 7.8 FL (6.5-10.1) Neutrophils (%) (Auto) 69.9 % (45.0-75.0) Lymphocytes (%) (Auto) 19.7 % (20.0-45.0) L Monocytes (%) (Auto) 7.5 % (1.0-10.0) Eosinophils (%) (Auto) 2.3 % (0.0-3.0) Basophils (%) (Auto) 0.6 % (0.0-2.0) Sodium Level 141 MMOL/L (136-145) Potassium Level 3.9 MMOL/L (3.5-5.1) Chloride Level 105 MMOL/L (98-107) Carbon Dioxide Level 27 MMOL/L (21-32) Anion Gap 9 mmol/L (5-15) Blood Urea Nitrogen 10 mg/dL (7-18) Creatinine 0.9 MG/DL (0.55-1.30) Estimat Glomerular Filtration Rate mL/min (>60) Glucose Level 99 MG/DL (74-106) Calcium Level 9.3 MG/DL (8.5-10.1) Objective HEAD AND NECK: No JVD. LUNGS: Coarse rhonchi. CARDIOVASCULAR: Irregular S1 and S2 with no gallop or rub. ABDOMEN: Soft. EXTREMITIES: No pitting edema. Jose Martin Mcallister MD October 19, 2018 16:17
--- NOTE | 2018-10-19 17:44 | Cardiology Report ---
APPROVED REPORT EKG Measurement Heart [id number] Atrial fibrillation with slow ventricular response Anterior infarct, age undetermined Marked ST abnormality, possible inferolateral subendocardial injury Abnormal ECG
--- NOTE | 2018-10-19 21:00 | Progress Note ---
DATE: 10/19/2018 DISCHARGE SUMMARY/PROGRESS NOTE: SUBJECTIVE: This is a 78-year-old female, currently came with recurrent nausea, vomiting, cellulitis, was found to have severe sepsis and was treated with IV Lasix, bronchodilator treatments, Zofran. Cardiology consult was obtained. The patient was clinically improved. The patient also had UTI. The patient is going to go home with p.o. antibiotics and Lasix. Follow up as outpatient. DISCHARGE DIAGNOSES: 1. CHF. 2. Cardiomyopathy. 3. Hypertension. 4. UTI. DIET: She is on 2 g sodium diet. ACTIVITY: As tolerated. DISCHARGE MEDICATIONS: See the list. Jeffrey العلي M.D. DR: BLANCA JOB#: [id number] CC:
--- NOTE | 2018-10-19 23:00 | Consultation ---
DATE OF CONSULTATION: 10/19/2018 CONSULTING PHYSICIAN: Betsy Nuñez M.D. HISTORY OF PRESENT ILLNESS: This is a 78-year-old female with a history of major depressive disorder as well as AFib, congestive heart failure, chronic arrhythmias, chronic back pain, acute on chronic bronchitis who is admitted to the hospital due to nausea and vomiting presents with depressed mood, anxiety, fatigue, and insomnia. The patient has taken antidepressant in the past. PAST PSYCHIATRIC HISTORY: Depression and anxiety disorder. No suicide attempt. PAST MEDICAL HISTORY: AFib, congestive heart failure, chronic arrhythmia, chronic back pain, acute on chronic bronchitis. ALLERGIES: No known drug allergies. SUBSTANCE ABUSE HISTORY: No known history of illicit drug use or alcohol. SOCIAL HISTORY: The patient lives with his daughter. MENTAL STATUS EXAMINATION: The patient is alert, oriented times self, place, and situation. Mood is depressed. Affect is constricted, congruent with mood. Thought process is concrete. Thought content, no suicidal or homicidal ideation. Memory is impaired. ASSESSMENT: [place] I Major depressive disorder. [place] II Deferred. [place] III As above. [place] IV Low. [place] V 20. PLAN: The patient will be started on Lexapro 10 mg in the morning. Provide the patient with reality orientation and supportive therapy. The patient will be discharged today. She will be referred to outpatient psychiatrist. Betsy Nuñez M.D. DR: LYNN JOB#: [id number] CC:
[2018-10-20] MEDS ORDERED: Furosemide 40mg tab ORAL SCH (09:00)
--- NOTE | 2018-10-20 10:18 | Discharge Summary ---
Discharge Summary Discharge Summary _ DATE OF ADMISSION: 10/16/2018 DATE OF DISCHARGE: 10/19/2018 DISCHARGED BY: Dr. Jeffrey العلي CONSULTANTS: Dr. Betsy Wren [facility]SE: Patient is a 78-year-old female, who was resented to ED due to nausea, vomiting and diarrhea. Patient was evaluated recently at [facility] [place]. She injured her back. There were no fractures identified. However, over the last several days, patient has not eaten well. She felt nauseated and vomited the day prior. She felt weak and dehydrated. The patient has medical history significant for atrial fibrillation, on anticoagulation, CHF, chronic back pain and bronchitis. On evaluation at the ED, vital signs were stable. Blood work did not show any leukocytosis. Hemoglobin and hematocrit were stable. Electrolytes showed potassium of 3.2. Lactic acid was elevated to 3. Troponin was negative. Urinalyses with +1 leukocyte esterase, 15-20 RBC, 0-2 WBC, negative nitrite. EKG showed atrial fibrillation with a rate of [address]-T wave changes. Abdominal KUB showed nonspecific bowel pattern with gas in the rectum and some pelvic calcifications. She was admitted for evaluation of nausea vomiting and diarrhea with elevated lactic acid. GI was consulted. Patient did not have any history of endoscopic or colonoscopic procedures. Patient refused any endoscopy. Diet was advanced. She was given symptomatic treatment. She was given bowel regimen. She was given levofloxacin. She was given potassium supplements. Emergency Management Consultant was consulted. Patient heart rate was controlled on digoxin and Cardizem. He was continued on metoprolol, dose was decreased to 25 mg twice daily. She was continued on Xarelto 50 mg nightly. Patient has a history of heart failure. She was given Lasix. Echocardiogram done showed ejection fraction of 60 to 65%. Right ventricular systolic pressure of 44 mmHg, consistent with mild pulmonary hypertension. Patient bradycardia down to 40s. Digoxin was eventually discontinued. She was continued on Cardizem CD 180 mg daily and Lopressor 25 mg twice daily. Patient had depressed mood and anxiety. Psychiatrist was consulted. She was diagnosed with major depressive disorder. She was started on Lexapro 10 mg every morning. FINAL DIAGNOSES: UTI Acute on chronic diastolic CHF Cardiomyopathy Hypertension Atrial fibrillation on anticoagulation Major depressive disorder DISPOSITION: Patient was discharged home. DISCHARGE INSTRUCTIONS: Follow-up in a week. I have been assigned to complete a discharge summary on this account, I was not involved with the patient's management. Doris Villarreal NP October 20, 2018 10:18
== END 2018-10-19 19:31 | disposition home or self-care (01) | DRG 689 ==
LOC: EMR 12:30 → 4E 13:00 → EDBEDREQ 14:23 → 4E 14:55 → 2E 10-18 08:16
DX: N39.0 Urinary tract infection, site not specified (principal); I50.33 Acute on chronic diastolic (congestive) heart failure; I42.9 Cardiomyopathy, unspecified; I11.0 Hypertensive heart disease with heart failure; E87.6 Hypokalemia; I48.91 Unspecified atrial fibrillation; R11.2 Nausea with vomiting, unspecified; J44.9 Chronic obstructive pulmonary disease, unspecified; F32.9 Major depressive disorder, single episode, unspecified; Z79.01 Long term (current) use of anticoagulants; I27.20 Pulmonary hypertension, unspecified; Z91.81 History of falling; E86.0 Dehydration; K29.70 Gastritis, unspecified, without bleeding; R19.7 Diarrhea, unspecified
CPT/HCPCS: 36415; 71045; 74018; 80048; 80053; 80162; 81003; 83605; 83690; 83880; 84484; 85025; 85610; 85730; 93005; 93306; 94664; 96361; 96374; 96375; 99285; J2765; J8499